=== PATIENT | male | born 1985 | race Two or more races ===

== ENCOUNTER 2017-01-14 13:57 | Emergency (ER) | payer MEDICAID, OTHER ==
[~2017-01-14] VITALS: Ht 185.4 cm; Wt 145.1 kg
[2017-01-14] MEDS ORDERED: cloNIDine HCL 0.1 MG TAB PO ONE (14:45)
[2017-01-14] MEDS ORDERED: TETANUS-DIPTH-ACEL PERTUSSIS 0.5ML SYRG IM ONE (14:45)
[2017-01-14] MEDS ORDERED: BACITRACIN TOP OINT 1 UD PKG TOP ONE (14:45)
[2017-01-14] MEDS ORDERED: KETOROLAC TROMETH 60MG/2ML VIAL IM ONE (14:45)
[2017-01-14 16:45] VITALS: BP 155/98
== END 2017-01-14 17:07 | disposition home or self-care (01) ==
LOC: ER 14:09
DX: S50.11XA Contusion of right forearm, initial encounter (principal); I10 Essential (primary) hypertension; V49.49XA Driver injured in collision with other motor vehicles in traffic accident, initial encounter; Y93.89 Activity, other specified; Y99.8 Other external cause status; Y92.89 Other specified places as the place of occurrence of the external cause
CPT/HCPCS: 70450; 72125; 73090; 90471; 90715; 96372; 99284; J1885

== ENCOUNTER 2020-12-13 12:29 | Inpatient (IN) | payer MEDICAID ==
[~2020-12-13] VITALS: Ht 185.4 cm; Wt 127.4 kg
[2020-12-13 14:20] LABS: Basophils # (auto) 0 10 ^3/uL (0-0.2); Basophils % (auto) 1.2 % (0.0-2.0); Eosinophils # (auto) 0 10 ^3/uL (0-0.8); Eosinophils % (auto) 1.2 % (0.0-7.0); Hematocrit 46.5 % (41.0-53.0); Hemoglobin 15.7 g/dL (13.5-17.5); Lymphocytes # (auto) 1.8 10 ^3/uL (0.4-5.4); Lymphocytes % (auto) 44.5 % (10.0-50.0); Mean Corpuscular Hemoglobin 28.4 pg (28.0-32.0); Mean Corpuscular Hgb Conc. 33.8 g/dL (32.0-36.0); Mean Corpuscular Volume 84.1 fL (80.0-100.0); Monocytes # (auto) 0.4 10 ^3/uL (0-1.3); Monocytes % (auto) 9.5 % (0.0-12.0); Neutrophils # (auto) 1.7 10 ^3/uL (1.6-8.6); Neutrophils % (auto) 43.6 % (37.0-80.0); Nucleated Red Blood Cells % 0.3 %; Red Blood Cells 5.53 10^6/uL (4.5-5.90); Red Cell Distribution Width 12.8 % (11.8-14.3)
[2020-12-13 14:38] LABS: Albumin 3.5 g/dL (3.4-5.0); Anion Gap 4 (5-15); Blood Urea Nitrogen 17 mg/dL (7-18); Calcium 8.6 mg/dL (8.5-10.1); Carbon Dioxide 23 mmol/L (21-32); Chloride 113 mmol/L (98-107); Glucose 93 mg/dL (74-106); Magnesium 2.3 mg/dL (1.6-2.6); Potassium 3.7 mmol/L (3.5-5.1); Sodium 140 mmol/L (136-145)
[2020-12-13 14:44] LABS: Alanine Aminotransferase 53 U/L (16-61); Alkaline Phosphatase 82 U/L (45-117); Aspartate Aminotransferase 39 U/L (15-37); BUN/Creatinine Ratio 14.9; Bilirubin, Total 0.6 mg/dL (0.2-1.0); GFR African American 93 mL/min; GFR Non-African American 77 mL/min; Total Protein 7.3 g/dL (6.4-8.2)
[2020-12-13] MEDS ORDERED: ONDANSETRON HCL 4 MG/2 ML VIAL IV ONE (14:45)
[2020-12-13] MEDS ORDERED: MORPHINE SULF INJ 2 MG/ML SYRINGE 1ML IV ONE (14:45)
[2020-12-13] MEDS ORDERED: ASPirin 81 mg TAB PO ONE (14:45)
[2020-12-13] MEDS ORDERED: ACETAMINOPHEN 500 MG TAB PO PRN (18:00)
[2020-12-13] MEDS ORDERED: NITROGLYCERIN 0.4 MG SL TAB SL PRN (18:00)
[2020-12-13] MEDS ORDERED: MORPHINE SULF INJ 2 MG/ML SYRINGE 1ML IV PRN ×2 (18:00)
[2020-12-13] MEDS ORDERED: ONDANSETRON HCL 4 MG/2 ML VIAL IV PRN (18:00)
[2020-12-13] MEDS ORDERED: hydrALAZINE HCL 20 MG/ML VL IV PRN (18:00)
[2020-12-13] MEDS ORDERED: HYDROcodone-ACET 5/325MG TAB PO PRN (18:00)
[2020-12-13] MEDS ORDERED: IOHEXOL 350 MG/ML 100ML IJ ONE (18:03)
[2020-12-13 18:55] LABS: CRP High Sensitivity 0.19 mg/dL (< 0.3)
[2020-12-13 20:00] LABS: Alcohol, Urine < 3.0 mg/dL (0-10); Amphetamine Screen, Urine NEGATIVE (NEGATIVE); Barbiturate Scree,Urine NEGATIVE (NEGATIVE); Benzodiazephine Screen, Urine NEGATIVE (NEGATIVE); Cannabinoid Screen, Urine POSITIVE (NEGATIVE); Cocaine Screen, Urine NEGATIVE (NEGATIVE); Opiate Scree,Urine NEGATIVE (NEGATIVE); Phencyclidine Screen, Urine NEGATIVE (NEGATIVE)
[2020-12-13 20:30] VITALS: BP 121/67
[2020-12-13 22:30] VITALS: BP 121/67
[2020-12-14] VITALS (7 sets, daily range): BP systolic 102–138; BP diastolic 57–78
[2020-12-14] MEDS ORDERED: NIFE90TA49 PO (01:25)
[2020-12-14] MEDS ORDERED: LISI-716 PO (01:25)
[2020-12-14] MEDS ORDERED: TRIATAB3 PO (01:25)
[2020-12-14] MEDS: ASPirin-EC 81 mg tab PO SCH (09:36)
[2020-12-14] MEDS: LISINOPRIL 10 MG TAB PO SCH (09:36)
[2020-12-15 05:00] VITALS: BP 116/74
[2020-12-15 08:00] VITALS: BP 118/75
[2020-12-15] MEDS ORDERED: ADENOSINE 107 MG in GIVE UN-DILUTED 0 ML IV ONE (08:45)
[2020-12-15 09:00] VITALS: BP 118/75
[2020-12-15] MEDS: LISINOPRIL 10 MG TAB PO SCH (10:00)
[2020-12-15] MEDS: ASPirin-EC 81 mg tab PO SCH (10:00)
[2020-12-15 12:54] VITALS: BP 135/82
[2020-12-15 16:26] VITALS: BP 118/75
== END 2020-12-15 18:55 | disposition home or self-care (01) | DRG 48 ==
LOC: ER 12:29 → TELE 18:01 → TELE-WESTW 20:27
PROVIDERS: ADMIT Nurse Practitioner Acute Care; ATTEND Internal Medicine
DX: M54.10 Radiculopathy, site unspecified (principal); E66.9 Obesity, unspecified; R00.1 Bradycardia, unspecified; R07.89 Other chest pain; I10 Essential (primary) hypertension; F17.210 Nicotine dependence, cigarettes, uncomplicated; Z20.822 Contact with and (suspected) exposure to COVID-19; Z88.8 Allergy status to other drugs, medicaments and biological substances; Z68.37 Body mass index [BMI] 37.0-37.9, adult
CPT/HCPCS: 36415; 71045; 71275; 78452; 80053; 80061; 80307; 83735; 84484; 85025; 85379; 86141; 87086; 87426; 93005; 93017; 93306; 96374; 96375; G0378; J0153; J2405